=== PATIENT | female | born 1970 | race Caucasian/White ===

== ENCOUNTER → 2019-07-18 | Outpatient (CLI) | payer MEDICAID ==
[~2019-07-18] VITALS: Ht 154.9 cm; Wt 65.3 kg
[2019-07-18 13:15] LABS: BASOPHIL % 0.5 % (0-2); PLATELET COUNT 251 x10^3mcL (130-400)
[2019-07-18 13:16] LABS: RED CELL DISTRIBUTION WIDTH 18.9 % (11.5-14.5)
[2019-07-18 13:33] LABS: ALBUMIN 3.6 g/dL (3.4-5.0); ALKALINE PHOSPHATASE 55 U/L (46-116); ALT/SGPT 48 U/L (14-59); AST/SGOT 28 U/L (15-37); BILIRUBIN TOTAL 0.3 mg/dL (0.20-1.00); CALCIUM 8.8 mg/dL (8.5-10.1); CARBON DIOXIDE 27.2 mmol/L (21-32); CHLORIDE SERUM 99 mmol/L (98-107); CREATININE SERUM 0.8 mg/dL (0.6-1.0); GFR1 > 60 mL/min; GLUCOSE SERUM 133 mg/dL (74-106); POTASSIUM SERUM 3.7 mmol/L (3.5-5.1); SODIUM SERUM 136 mmol/L (136-145); TOTAL PROTEIN, SERUM 7.6 g/dL (6.4-8.2)
== END | disposition home or self-care (01) ==
LOC: LB 08:00 → MA 07-22 10:00 → EDSTATUS 07-23 09:00
PROVIDERS: ATTEND Surgery
DX: C50.911 Malignant neoplasm of unspecified site of right female breast (principal); N63.0 Unspecified lump in unspecified breast
CPT/HCPCS: U0003-CS

== ENCOUNTER → 2019-08-02 | Outpatient (CLI) | payer MEDICAID | END | disposition home or self-care (01) | LOC: LB 13:50 → DS 13:50 → EDSTATUS 08-05 11:26 | PROVIDERS: ATTEND Surgery | DX: C50.911 Malignant neoplasm of unspecified site of right female breast (principal); U07.1 COVID-19 | CPT/HCPCS: U0003-CS ==

== ENCOUNTER 2019-08-27 08:06 | Day surgery (SDC) | payer MEDICAID ==
[2019-08-22 15:35] LABS: BASOPHIL % 0.5 % (0-2); PLATELET COUNT 256 x10^3mcL (130-400)
[2019-08-22 15:41] LABS: RED CELL DISTRIBUTION WIDTH 16.2 % (11.5-14.5)
[2019-08-22 15:49] LABS: ALBUMIN 3.6 g/dL (3.4-5.0); ALKALINE PHOSPHATASE 64 U/L (46-116); ALT/SGPT 35 U/L (14-59); AST/SGOT 20 U/L (15-37); BILIRUBIN TOTAL 0.22 mg/dL (0.20-1.00); CALCIUM 8.9 mg/dL (8.5-10.1); CARBON DIOXIDE 30.2 mmol/L (21-32); CHLORIDE SERUM 102 mmol/L (98-107); CREATININE SERUM 0.8 mg/dL (0.6-1.0); GFR1 > 60 mL/min; GLUCOSE SERUM 99 mg/dL (74-106); POTASSIUM SERUM 3.7 mmol/L (3.5-5.1); SODIUM SERUM 138 mmol/L (136-145); TOTAL PROTEIN, SERUM 7.5 g/dL (6.4-8.2)
[~2019-08-27] VITALS: Ht 154.9 cm; Wt 65.3 kg
[2019-08-27 08:33] VITALS: BP 144/90
--- NOTE | 2019-08-27 16:56 | NUR ---
RECEIVED FAX FROM [facility] INCLUDING CBC, BMP, EKG AND CXR ONLY. DR. DAVIS WAS CALLED AND NOTIFIED THAT NO PT AND PTT RESULT. PER DOCTOR, PATIENT DOES NOT PT AND PTT THIS TIME.
[2019-08-27 19:52] VITALS: BP 145/90
== END 2019-08-27 19:35 | disposition home or self-care (01) ==
LOC: DS 08:06 → NM 09:00 → OR 12:00 → DS 19:35
PROVIDERS: ATTEND Surgery
DX: C50.911 Malignant neoplasm of unspecified site of right female breast (principal); N62 Hypertrophy of breast; N60.22 Fibroadenosis of left breast; I10 Essential (primary) hypertension; E11.9 Type 2 diabetes mellitus without complications; Z11.59 Encounter for screening for other viral diseases
CPT/HCPCS: 76642; 88329; 88344; 88361; J0690; J1170; J2001; J2405; J2704; J3010; J3490; J7030; Q9968; U0003-CS